=== PATIENT | female | born 1975 | race Two or more races ===

== ENCOUNTER 2017-12-02 23:17 | Emergency (ER) | payer MEDICAID ==
[~2017-12-02] VITALS: Ht 160 cm; Wt 122.5 kg
[2017-12-03 03:37] LABS: Basophils # (auto) 0.1 uL; Basophils % (auto) 0.7 % (0.0-2.0); Eosinophils # (auto) 0.3 uL; Eosinophils % (auto) 2.7 % (0.0-7.0); Hematocrit 43.2 % (36.0-46.0); Hemoglobin 14.5 g/dL (12.2-16.2); Lymphocytes # (auto) 1.7 uL; Lymphocytes % (auto) 13.9 % (10.0-50.0); Mean Corpuscular Hemoglobin 28.7 pg (28.0-32.0); Mean Corpuscular Hgb Conc. 33.7 g/dL (32.0-36.0); Mean Corpuscular Volume 85.1 fL (80.0-100.0); Monocytes # (auto) 0.8 uL; Neutrophils # (auto) 9.1 uL; Neutrophils % (auto) 75.7 % (37.0-80.0); Nucleated Red Blood Cells % 0.1 %; Platelet Count (auto) 391 10^3/uL (140-450); Red Blood Cells 5.07 10^6/uL (4.0-5.20); Red Cell Distribution Width 15.7 % (11.8-14.3)
[2017-12-03 03:41] LABS: Urine Bacteria NONE SEEN /hpf (None Seen); Urine Blood 1+ /uL (Negative); Urine Mucus FEW (None Seen); Urine WBC 2 /hpf (0 - 5)
[2017-12-03 03:53] LABS: Albumin 3.7 g/dL (3.4-5.0); BUN/Creatinine Ratio 22.2; Calcium 8.2 mg/dL (8.5-10.1); Magnesium 2.4 mg/dL (1.6-2.6); Potassium 3.9 mmol/L (3.5-5.1)
[2017-12-03 03:56] LABS: Bilirubin, Total 0.3 mg/dL (0.2-1.0); Total Protein 8.1 g/dL (6.4-8.2)
[2017-12-03] MEDS ORDERED: SODIUM CHLORIDE 0.9% 1,000 ML IVB ONE (07:52)
[2017-12-03] MEDS ORDERED: KETOROLAC TROMETH 30 MG/ML 1ML VIAL IV ONE (08:00)
[2017-12-03] MEDS ORDERED: PROMETHAZINE HCL 25 MG/ML 1ML IV PRN (08:00)
[2017-12-03] MEDS ORDERED: IOHEXOL 300 MG/ML 100ML BOTTLE IJ ONE (08:07)
[2017-12-03 12:33] VITALS: BP 124/94
== END 2017-12-03 12:34 | disposition home or self-care (01) ==
LOC: ER 23:17
DX: R10.84 Generalized abdominal pain (principal); E66.9 Obesity, unspecified; E03.9 Hypothyroidism, unspecified; Z68.42 Body mass index [BMI] 45.0-49.9, adult
CPT/HCPCS: 36415; 74177; 80053; 81001; 83036; 83690; 83735; 84443; 84702; 85025; 96361; 96374; 99285; J1885; J7030; Q9967

== ENCOUNTER 2020-05-27 21:36 | Inpatient (IN) | payer MEDICAID ==
[~2020-05-27] VITALS: Ht 160 cm; Wt 131.2 kg
[2020-05-27] MEDS ORDERED: ACETAMINOPHEN 325 MG TAB PO ONE (22:00)
[2020-05-27] MEDS ORDERED: DexAMETHasone SOD PHOS 10MG/1ML VIAL INJ IV ONE (22:00)
[2020-05-27] MEDS ORDERED: SODIUM CHLORIDE 0.9% 1,000 ML IV ONE (22:00)
[2020-05-27] MEDS ORDERED: DOXYCYCLINE 100MG/250ML 250 ML IV ONE (22:00)
[2020-05-27 22:17] LABS: Basophils # (auto) 0 10 ^3/uL (0-0.2); Basophils % (auto) 0.4 % (0.0-2.0); Eosinophils # (auto) 0 10 ^3/uL (0-0.8); Eosinophils % (auto) 0.3 % (0.0-7.0); Hematocrit 47.7 % (36.0-46.0); Hemoglobin 15.9 g/dL (12.2-16.2); Lymphocytes # (auto) 1.1 10 ^3/uL (0.4-5.4); Lymphocytes % (auto) 18.2 % (10.0-50.0); Mean Corpuscular Hemoglobin 28.6 pg (28.0-32.0); Mean Corpuscular Hgb Conc. 33.3 g/dL (32.0-36.0); Mean Corpuscular Volume 86.1 fL (80.0-100.0); Monocytes # (auto) 0.6 10 ^3/uL (0-1.3); Monocytes % (auto) 10.5 % (0.0-12.0); Neutrophils # (auto) 4.2 10 ^3/uL (1.6-8.6); Neutrophils % (auto) 70.6 % (37.0-80.0); Platelet Count (auto) 278 10^3/uL (140-450); Red Blood Cells 5.54 10^6/uL (4.0-5.20); Red Cell Distribution Width 14.2 % (11.8-14.3)
[2020-05-27 22:33] LABS: INR 0.95 (0.9-1.15)
[2020-05-27 22:34] LABS: Albumin 3.4 g/dL (3.4-5.0); BUN/Creatinine Ratio 7.8; Calcium 7.9 mg/dL (8.5-10.1); Potassium 3.6 mmol/L (3.5-5.1)
[2020-05-27 22:38] LABS: Bilirubin, Total 0.3 mg/dL (0.2-1.0); Total Protein 8.3 g/dL (6.4-8.2)
[2020-05-28] MEDS ORDERED: MORPHINE SULF INJ 2 MG/ML SYRINGE 1ML IV PRN (00:45)
[2020-05-28] MEDS ORDERED: NITROGLYCERIN 0.4 MG SL TAB SL PRN (00:45)
[2020-05-28 01:20] LABS: Magnesium 2.4 mg/dL (1.6-2.6)
[2020-05-28 01:30] LABS: Urine Bacteria MOD /hpf (None Seen); Urine Blood Negative /uL (Negative); Urine Mucus FEW (None Seen); Urine Specific Gravity 1.012 (1.001-1.035); Urine WBC 1 /hpf (0 - 5)
[2020-05-28 02:34] VITALS: BP 139/85
--- NOTE | 2020-05-28 02:35 | NUR ---
Telemetry admit from ER JASPERLIZBETH Rice admitted to Telemetry unit after SBAR received. Patient oriented to PRAVEEN DELEON, RN primary RN, unit, room, bed, and unit policies regarding patient care and visiting hours. Patient now on continuous telemetry monitoring, tele box # 3 and telemetry reading on arrival to unit is SR-90's. Patient placed on bedside oxygen 2L NC, weighed by bedscale and encouraged to call if they need something. All questions and concerns addressed, patient verbalized understanding.
[2020-05-28] MEDS ORDERED: PNEUMOCOCCAL VACC POLYS 25 MCG/0.5 ML VIAL IM ONE (03:45)
[2020-05-28] MEDS ORDERED: LEVO50TA7 PO (03:48)
--- NOTE | 2020-05-28 03:50 | NUR ---
Lab Called Lab called patient positive to Covid-19.
--- NOTE | 2020-05-28 04:15 | NUR ---
Room Change Patient got moved to room 245B
[2020-05-28] MEDS: LEVOTHYROXINE SODIUM 50 MCG TAB PO SCH (06:29)
--- NOTE | 2020-05-28 07:30 | NUR ---
Opening Shift Note Assumed care of patient, awake and confused. No S/S of distress/SOB or pain. Patient on 2L NC. Patient safety measures in place bed in lowest position, side rails up x2, call light within reach. Instructed on POC and to call for assist PRN, will continue to monitor for changes Q1hr and PRN.
[2020-05-28 09:00] VITALS: BP 119/61
[2020-05-28] MEDS: DexAMETHasone SOD PHOS 10MG/1ML VIAL INJ IV SCH (09:13)
[2020-05-28] MEDS: FAMOTIDINE 20 MG TAB PO SCH ×2 (09:14→21:14)
[2020-05-28] MEDS: ASCORBIC ACID 1,000 MG TAB PO SCH (09:14)
[2020-05-28] MEDS: ZINC SULFATE 220mg CAP or TAB PO SCH (09:14)
[2020-05-28] MEDS: CHOLECALCIFEROL (VITD3) 2,000 UNIT CAP PO SCH (09:15)
--- NOTE | 2020-05-28 09:43 | NUR ---
CALL PLACED TO PHARMACY RE: AZITHROMYCIN IV PER PHARMACIST MEDICATION IS BACK-ORDERED. RN TO NOTIFY
[2020-05-28] MEDS ORDERED: ENOXAPARIN SOD 40 MG/0.4 ML SYRINGE SC SCH (10:00)
[2020-05-28] MEDS ORDERED: DOXYCYCLINE 100MG/250ML 250 ML IV SCH (10:00)
[2020-05-28 12:46] VITALS: BP 137/83
--- NOTE | 2020-05-28 13:20 | NUR ---
ROUNDING MD Vinod SOLOMON AT BEDSIDE. ALL QUESTIONS AND CONCERNS ADDRESSED AT THIS TIME.
[2020-05-28] MEDS ORDERED: POTASSIUM CHL 10 Meq TABLET PO ONE (14:00)
[2020-05-28] MEDS ORDERED: FUROSEMIDE 40 MG TAB PO ONE (14:00)
--- NOTE | 2020-05-28 19:55 | NUR ---
Opening Shift Note Assumed care of patient, awake and alert. No S/S of distress/SOB or pain. Patient on 2L NC. Instructed on POC and to call for assist PRN, will continue to monitor for changes Q1hr and PRN.
[2020-05-28 20:00] VITALS: BP 130/82
[2020-05-28] MEDS: DOXYCYCLINE 100 MG TAB/CAP PO SCH (21:14)
[2020-05-28] MEDS: TEMAZEPAM 15 MG CAP PO PRN (21:14)
[2020-05-28] MEDS: ENOXAPARIN SOD 40 MG/0.4 ML SYRINGE SC SCH (21:15)
[2020-05-28 22:00] VITALS: BP 130/82
[2020-05-29 05:00] VITALS: BP 156/90
[2020-05-29] MEDS: LEVOTHYROXINE SODIUM 50 MCG TAB PO SCH (06:06)
[2020-05-29] MEDS: ACETAMINOPHEN 325 MG TAB PO PRN (06:10)
[2020-05-29 07:25] LABS: Basophils # (auto) 0.1 10 ^3/uL (0-0.2); Basophils % (auto) 0.5 % (0.0-2.0); Eosinophils # (auto) 0 10 ^3/uL (0-0.8); Hematocrit 46.7 % (36.0-46.0); Hemoglobin 15.1 g/dL (12.2-16.2); Lymphocytes # (auto) 1.3 10 ^3/uL (0.4-5.4); Lymphocytes % (auto) 9.3 % (10.0-50.0); Mean Corpuscular Hemoglobin 28.3 pg (28.0-32.0); Mean Corpuscular Hgb Conc. 32.4 g/dL (32.0-36.0); Mean Corpuscular Volume 87.1 fL (80.0-100.0); Monocytes # (auto) 0.8 10 ^3/uL (0-1.3); Monocytes % (auto) 5.7 % (0.0-12.0); Neutrophils # (auto) 12.2 10 ^3/uL (1.6-8.6); Neutrophils % (auto) 84.5 % (37.0-80.0); Nucleated Red Blood Cells % 0.2 %; Platelet Count (auto) 310 10^3/uL (140-450); Red Blood Cells 5.35 10^6/uL (4.0-5.20); Red Cell Distribution Width 14.5 % (11.8-14.3); White Blood Cell 14.4 10^3/uL (4.4-10.8)
--- NOTE | 2020-05-29 07:30 | NUR ---
Opening Shift Note Assumed care of patient, awake and alert. No S/S of distress/SOB or pain. Patient on 2L NC. Instructed on POC and to call for assist PRN, will continue to monitor for changes Q1hr and PRN. Addendum: 05/29/20 at 0823 by YESSI NAPOLES RN RN PATIENT COMPLAINING OF 9/10 PAIN DUE TO MIGRAINE HEADACHE. WILL MEDICATE PER DEC AND ALERT
[2020-05-29 07:59] LABS: Calcium 8.3 mg/dL (8.5-10.1); Potassium 3.8 mmol/L (3.5-5.1)
[2020-05-29 08:05] LABS: Albumin 3.3 g/dL (3.4-5.0); BUN/Creatinine Ratio 11.4; Bilirubin, Total 0.2 mg/dL (0.2-1.0); Total Protein 8.3 g/dL (6.4-8.2)
--- NOTE | 2020-05-29 08:18 | NUR ---
PAGED ON-CALL HOSPITALIST Isabella WHALEN RE: PATIENT COMPLAINING OF MIGRAINE WITH PAIN 06/26. PT ALREADY RECEIVED TYLENOL, PER PATIENT "IT DID NOTHING FOR THE PAIN, I NORMALLY TAKE EXCEDRIN AND IT HELPS" AWAITING CALL BACK
[2020-05-29 09:00] VITALS: BP 146/100
--- NOTE | 2020-05-29 09:12 | NUR ---
PAGED MD Vinod SOLOMON RE: PATIENT COMPLAINING OF MIGRAINE WITH PAIN 06/26. PT ALREADY RECEIVED TYLENOL, PER PATIENT "IT DID NOTHING FOR THE PAIN, I NORMALLY TAKE EXCEDRIN AND IT HELPS" AWAITING CALL BACK
[2020-05-29] MEDS: DexAMETHasone SOD PHOS 10MG/1ML VIAL INJ IV SCH (10:02)
[2020-05-29] MEDS: POTASSIUM CHL 10 Meq TABLET PO SCH (10:02)
[2020-05-29] MEDS: DOXYCYCLINE 100 MG TAB/CAP PO SCH ×2 (10:03→21:53)
[2020-05-29] MEDS: PANTOPRAZOLE 40 MG TAB PO SCH (10:03)
[2020-05-29] MEDS: FAMOTIDINE 20 MG TAB PO SCH ×2 (10:03→21:52)
[2020-05-29] MEDS: ZINC SULFATE 220mg CAP or TAB PO SCH (10:03)
[2020-05-29] MEDS: ASCORBIC ACID 1,000 MG TAB PO SCH (10:03)
[2020-05-29] MEDS: ENOXAPARIN SOD 40 MG/0.4 ML SYRINGE SC SCH ×2 (10:04→21:53)
[2020-05-29] MEDS: CHOLECALCIFEROL (VITD3) 2,000 UNIT CAP PO SCH (10:04)
[2020-05-29] MEDS: FUROSEMIDE 40 MG TAB PO SCH (10:04)
[2020-05-29] MEDS: IBUPROFEN 600 MG TAB PO PRN ×2 (10:04→21:12)
[2020-05-29 12:00] VITALS: BP 137/81
[2020-05-29] MEDS: ONDANSETRON HCL 4 MG/2 ML VIAL IV PRN ×2 (12:20→20:47)
[2020-05-29] MEDS ORDERED: EXCEDRIN PO PRN (12:30)
[2020-05-29 17:00] VITALS: BP 123/77
[2020-05-29 22:00] VITALS: BP 130/88
[2020-05-29] MEDS: TEMAZEPAM 15 MG CAP PO PRN (22:00)
[2020-05-30] MEDS: EXCEDRIN PO PRN ×3 (04:24→15:34)
[2020-05-30] MEDS: ACETAMINOPHEN 325 MG TAB PO PRN (04:24)
--- NOTE | 2020-05-30 04:25 | NUR ---
PATIENT COMPLAINING OF MIGRAINE AND FEELING HOT. UPON TAKING TEMPERATURE SHE WAS FOUND TO HAVE A FEVER OF 103. BLANKETS WERE REMOVED, ICE PACK GIVEN AND TYLENOL GIVEN TO REDUCE TEMPERATURE. WILL CONTINUE TO MONITOR.
[2020-05-30 05:00] VITALS: BP 135/95
[2020-05-30] MEDS: LEVOTHYROXINE SODIUM 50 MCG TAB PO SCH (06:41)
[2020-05-30 07:31] LABS: Basophils # (auto) 0 10 ^3/uL (0-0.2); Basophils % (auto) 0.2 % (0.0-2.0); Eosinophils # (auto) 0 10 ^3/uL (0-0.8); Hematocrit 42.4 % (36.0-46.0); Hemoglobin 14.3 g/dL (12.2-16.2); Lymphocytes # (auto) 1.1 10 ^3/uL (0.4-5.4); Lymphocytes % (auto) 7.3 % (10.0-50.0); Mean Corpuscular Hemoglobin 29.2 pg (28.0-32.0); Mean Corpuscular Hgb Conc. 33.7 g/dL (32.0-36.0); Mean Corpuscular Volume 86.5 fL (80.0-100.0); Monocytes # (auto) 0.8 10 ^3/uL (0-1.3); Monocytes % (auto) 5.1 % (0.0-12.0); Neutrophils # (auto) 13.1 10 ^3/uL (1.6-8.6); Neutrophils % (auto) 87.4 % (37.0-80.0); Platelet Count (auto) 321 10^3/uL (140-450); Red Cell Distribution Width 14.5 % (11.8-14.3)
[2020-05-30 07:55] LABS: Potassium 3.2 mmol/L (3.5-5.1)
[2020-05-30 08:00] LABS: BUN/Creatinine Ratio 15.9; Calcium 8.3 mg/dL (8.5-10.1)
[2020-05-30 08:04] LABS: Bilirubin, Total 0.3 mg/dL (0.2-1.0); Total Protein 7.7 g/dL (6.4-8.2)
[2020-05-30 09:21] VITALS: BP 145/78
[2020-05-30] MEDS: ASCORBIC ACID 1,000 MG TAB PO SCH (09:34)
[2020-05-30] MEDS: DOXYCYCLINE 100 MG TAB/CAP PO SCH ×2 (09:34→22:30)
[2020-05-30] MEDS: ENOXAPARIN SOD 40 MG/0.4 ML SYRINGE SC SCH ×2 (09:34→22:30)
[2020-05-30] MEDS: CHOLECALCIFEROL (VITD3) 2,000 UNIT CAP PO SCH (09:34)
[2020-05-30] MEDS: FAMOTIDINE 20 MG TAB PO SCH ×2 (09:34→22:30)
[2020-05-30] MEDS: PANTOPRAZOLE 40 MG TAB PO SCH (09:35)
[2020-05-30] MEDS: POTASSIUM CHL 10 Meq TABLET PO SCH (09:35)
[2020-05-30] MEDS: DexAMETHasone SOD PHOS 10MG/1ML VIAL INJ IV SCH (09:35)
[2020-05-30] MEDS: ZINC SULFATE 220mg CAP or TAB PO SCH (09:35)
[2020-05-30] MEDS: FUROSEMIDE 40 MG TAB PO SCH (09:36)
[2020-05-30 10:51] LABS: CRP High Sensitivity 5.27 mg/dL (< 0.3)
[2020-05-30] MEDS: ONDANSETRON HCL 4 MG/2 ML VIAL IV PRN ×2 (11:29→18:54)
[2020-05-30 13:22] VITALS: BP 131/80
--- NOTE | 2020-05-30 15:33 | NUR ---
Nutrition Assessment Notes Please refer to link for full assessment notes. Est Energy needs: [id number] kcals (12-15 kcal/kgBW) Est Protein needs: 105-131 gms/day (2.0-2.5 gm/kgIBW) d/t pt adiposity Will continue to monitor and reassess prn. Addendum: 05/30/20 at [address] Amended: Links added.
[2020-05-30] MEDS ORDERED: REMDESIVIR 200 MG in NS 210ml LOADING DOSE ADULT IV ONE (17:00)
[2020-05-30 17:16] VITALS: BP 112/74
--- NOTE | 2020-05-30 18:12 | NUR ---
REMDESIVIR ASSESSMENT PRE-INFUSION VITAL SIGNS: TEMP:98.0 BP112/74 HR105 RR20 SPO2 93% INFUSION VITAL SIGNS: TEMP:98.1 BP104/80 HR91 RR18 SPO2 92% POST-INFUSIONVITAL SIGNS; TEMP:97.8 BP122/64 HR96 RR19 SPO2 94%
--- NOTE | 2020-05-30 21:30 | NUR ---
Convalescent Plasma ordered through system per protocol
[2020-05-30 22:27] VITALS: BP 128/81
[2020-05-31] VITALS (7 sets, daily range): BP systolic 107–142; BP diastolic 63–90
[2020-05-31] MEDS: EXCEDRIN PO PRN ×2 (00:03→12:05)
[2020-05-31 06:17] LABS: Albumin 2.8 g/dL (3.4-5.0); Calcium 7.9 mg/dL (8.5-10.1)
[2020-05-31 06:20] LABS: Bilirubin, Total 0.4 mg/dL (0.2-1.0); Total Protein 7.9 g/dL (6.4-8.2)
[2020-05-31] MEDS ORDERED: POTASSIUM CHL 20 Meq TABLET PO ONE (06:45)
[2020-05-31] MEDS: LEVOTHYROXINE SODIUM 50 MCG TAB PO SCH (06:57)
[2020-05-31] MEDS: ZINC SULFATE 220mg CAP or TAB PO SCH (08:57)
[2020-05-31] MEDS: POTASSIUM CHL 10 Meq TABLET PO SCH (08:57)
[2020-05-31] MEDS: DexAMETHasone SOD PHOS 10MG/1ML VIAL INJ IV SCH (08:57)
[2020-05-31] MEDS: DOXYCYCLINE 100 MG TAB/CAP PO SCH ×2 (08:58→22:18)
[2020-05-31] MEDS: FAMOTIDINE 20 MG TAB PO SCH (08:58)
[2020-05-31] MEDS: PANTOPRAZOLE 40 MG TAB PO SCH (08:58)
[2020-05-31] MEDS: FUROSEMIDE 40 MG TAB PO SCH (08:58)
[2020-05-31] MEDS: CHOLECALCIFEROL (VITD3) 2,000 UNIT CAP PO SCH (08:59)
[2020-05-31] MEDS: ONDANSETRON HCL 4 MG/2 ML VIAL IV PRN ×2 (08:59→13:00)
[2020-05-31] MEDS: ASCORBIC ACID 1,000 MG TAB PO SCH (08:59)
[2020-05-31] MEDS: ENOXAPARIN SOD 40 MG/0.4 ML SYRINGE SC SCH (08:59)
[2020-05-31] MEDS ORDERED: PANTOPRAZOLE 40 MG/10 ML VIAL INJ IV ONE (15:15)
[2020-05-31] MEDS: REMDESIVIR 100mg in NS 230ml DAILYx4DAYS (NO VENT) IV SCH (18:07)
--- NOTE | 2020-05-31 19:15 | NUR ---
Opening Shift Note Received report from michael Noriega RN. Assumed care of patient, awake and alert. No S/S of distress/SOB or pain. Saturating at 90%on 4LNC. Patient on the phone talking. Instructed on POC and to call for assist PRN, will continue to monitor for changes Q1hr and PRN. Bed placed in lowest position and call light within reach.
[2020-06-01] VITALS (7 sets, daily range): BP systolic 105–136; BP diastolic 60–90
--- NOTE | 2020-06-01 03:15 | NUR ---
ROUNDS Patient has been having non-productive cough. Given Robitussin as ordered. Will monitor.
[2020-06-01] MEDS: guaiFENesin-DM 100/10mg/5ml SYR PO PRN ×2 (03:16→21:42)
--- NOTE | 2020-06-01 04:32 | NUR ---
Patient is on 4LNC with humidifier saturating at 89% to 91%. Patient refused to have oxygen increased to 6LNC, states that it dries her nose. Will monitor.
[2020-06-01 06:17] LABS: Basophils # (auto) 0 10 ^3/uL (0-0.2); Basophils % (auto) 0.1 % (0.0-2.0); Eosinophils # (auto) 0 10 ^3/uL (0-0.8); Eosinophils % (auto) 0.1 % (0.0-7.0); Hematocrit 45.4 % (36.0-46.0); Hemoglobin 15.1 g/dL (12.2-16.2); Lymphocytes # (auto) 1.4 10 ^3/uL (0.4-5.4); Lymphocytes % (auto) 13.1 % (10.0-50.0); Mean Corpuscular Hemoglobin 28.7 pg (28.0-32.0); Mean Corpuscular Hgb Conc. 33.3 g/dL (32.0-36.0); Mean Corpuscular Volume 86.2 fL (80.0-100.0); Monocytes # (auto) 0.9 10 ^3/uL (0-1.3); Monocytes % (auto) 8.2 % (0.0-12.0); Neutrophils # (auto) 8.3 10 ^3/uL (1.6-8.6); Neutrophils % (auto) 78.5 % (37.0-80.0); Nucleated Red Blood Cells % 0.2 %; Platelet Count (auto) 415 10^3/uL (140-450); Red Blood Cells 5.27 10^6/uL (4.0-5.20); Red Cell Distribution Width 14.3 % (11.8-14.3); White Blood Cell 10.6 10^3/uL (4.4-10.8)
[2020-06-01] MEDS: LEVOTHYROXINE SODIUM 50 MCG TAB PO SCH (06:33)
[2020-06-01 06:46] LABS: Albumin 2.8 g/dL (3.4-5.0); Calcium 8.3 mg/dL (8.5-10.1); Potassium 3.4 mmol/L (3.5-5.1)
[2020-06-01 06:48] LABS: BUN/Creatinine Ratio 19.8; Bilirubin, Total 0.3 mg/dL (0.2-1.0); Total Protein 7.8 g/dL (6.4-8.2)
--- NOTE | 2020-06-01 07:00 | NUR ---
RESPIRATORY NOTE POX CHECK DONE BY RT. HR 64, RR 16, SPO2 92% ON 5 L NC, BS CLEAR AND DIMINISHED. NO SIGNS OR SYMPTOMS OF RESPIRATORY DISTRESS NOTED AT THIS TIME.
[2020-06-01] MEDS: ASCORBIC ACID 1,000 MG TAB PO SCH (09:15)
[2020-06-01] MEDS: DexAMETHasone SOD PHOS 10MG/1ML VIAL INJ IV SCH (09:15)
[2020-06-01] MEDS: PANTOPRAZOLE 40 MG/10 ML VIAL INJ IV SCH (09:15)
[2020-06-01] MEDS: POTASSIUM CHL 10 Meq TABLET PO SCH (09:15)
[2020-06-01] MEDS: ZINC SULFATE 220mg CAP or TAB PO SCH (09:15)
[2020-06-01] MEDS: DOXYCYCLINE 100 MG TAB/CAP PO SCH ×2 (09:15→21:42)
[2020-06-01] MEDS: ENOXAPARIN SOD 40 MG/0.4 ML SYRINGE SC SCH (09:16)
[2020-06-01] MEDS: FUROSEMIDE 40 MG TAB PO SCH (09:16)
[2020-06-01] MEDS: CHOLECALCIFEROL (VITD3) 2,000 UNIT CAP PO SCH (09:16)
[2020-06-01] MEDS ORDERED: POTASSIUM CHL 10 Meq TABLET PO ONE (14:45)
[2020-06-01] MEDS: REMDESIVIR 100mg in NS 230ml DAILYx4DAYS (NO VENT) IV SCH (17:28)
--- NOTE | 2020-06-01 19:10 | NUR ---
Opening Shift Note Received report from michael Noriega RN. Assumed care of patient, awake and alert. No S/S of distress/SOB or pain. Patient is on 4LNC saturating at 90%. Patient on the phone talking. Encouraged patient to do prone position tonight when sleeping. Will monitor on that. Instructed on POC and to call for assist PRN, will continue to monitor for changes Q1hr and PRN.
--- NOTE | 2020-06-01 23:00 | NUR ---
RT states that patient's oxygen saturation at 4LNC is 86% and rt placed patient on 8L simple mask. Will monitor
[2020-06-02] VITALS (12 sets, daily range): BP systolic 105–139; BP diastolic 68–97
--- NOTE | 2020-06-02 00:15 | NUR ---
Patient woke up and states that she is not comfortable with the mask and ask to be put back on Nasal cannula with humidifier. Patient now on 6LNC saturating at 94%. Will monitor.
[2020-06-02] MEDS: LEVOTHYROXINE SODIUM 50 MCG TAB PO SCH (06:41)
--- NOTE | 2020-06-02 06:52 | NUR ---
ROUNDS Patient is resting in bed alert and awake, no distress noted. Patient is on 5LNC saturating at 90%. Patient denies pain this time.
[2020-06-02 08:21] LABS: Basophils # (auto) 0 10 ^3/uL (0-0.2); Eosinophils # (auto) 0 10 ^3/uL (0-0.8); Lymphocytes # (auto) 1.9 10 ^3/uL (0.4-5.4)
[2020-06-02 08:23] LABS: Basophils % (auto) 0.3 % (0.0-2.0); Eosinophils % (auto) 0.4 % (0.0-7.0); Hematocrit 45.8 % (36.0-46.0); Hemoglobin 15.6 g/dL (12.2-16.2); Lymphocytes % (auto) 20.1 % (10.0-50.0); Mean Corpuscular Hemoglobin 29.5 pg (28.0-32.0); Mean Corpuscular Hgb Conc. 34.2 g/dL (32.0-36.0); Mean Corpuscular Volume 86.5 fL (80.0-100.0); Monocytes % (auto) 10.8 % (0.0-12.0); Neutrophils # (auto) 6.6 10 ^3/uL (1.6-8.6); Neutrophils % (auto) 68.4 % (37.0-80.0); Nucleated Red Blood Cells % 0.2 %; Platelet Count (auto) 531 10^3/uL (140-450); Red Blood Cells 5.29 10^6/uL (4.0-5.20); Red Cell Distribution Width 14.4 % (11.8-14.3); White Blood Cell 9.6 10^3/uL (4.4-10.8)
[2020-06-02 08:31] LABS: Albumin 2.9 g/dL (3.4-5.0); BUN/Creatinine Ratio 24.2; Calcium 8.9 mg/dL (8.5-10.1); Potassium 3.4 mmol/L (3.5-5.1)
[2020-06-02 08:33] LABS: Bilirubin, Total 0.3 mg/dL (0.2-1.0); Total Protein 8.1 g/dL (6.4-8.2)
[2020-06-02] MEDS: PANTOPRAZOLE 40 MG/10 ML VIAL INJ IV SCH (08:57)
[2020-06-02] MEDS: ZINC SULFATE 220mg CAP or TAB PO SCH (08:57)
[2020-06-02] MEDS: DexAMETHasone SOD PHOS 10MG/1ML VIAL INJ IV SCH (08:57)
[2020-06-02] MEDS: ASCORBIC ACID 1,000 MG TAB PO SCH (08:58)
[2020-06-02] MEDS: CHOLECALCIFEROL (VITD3) 2,000 UNIT CAP PO SCH (08:58)
[2020-06-02] MEDS: DOXYCYCLINE 100 MG TAB/CAP PO SCH (08:58)
[2020-06-02] MEDS: ENOXAPARIN SOD 40 MG/0.4 ML SYRINGE SC SCH (08:58)
[2020-06-02] MEDS: POTASSIUM CHL 10 Meq TABLET PO SCH ×2 (08:58→10:46)
[2020-06-02] MEDS: FUROSEMIDE 40 MG TAB PO SCH (08:59)
--- NOTE | 2020-06-02 12:49 | NUR ---
Nutrition Followup Notes Wt: 130.5 kg Unable to speak to pt d/t pt is positive for COVID. Pt is with a Regular diet, with inadequate PO of < 50% x 4 per RN doc. pt with no distress noted per nursing Est Energy needs: 7387-0656 kcals (12-15 kcal/kgBW), Est Protein needs: 105-131 gms/day (2.0-2.5 gm/kgIBW) d/t pt adiposity LABS: BUN 23 H ALB 2.9 L GI: Pt had 2 BM yesterday per RN doc BS: 22 low risk. Refer to wound assessment report for full details. PES: Obesity aeb 264% IBW and BMI of 54.0 kg/m2 and Hx of Thyroid Dz r/t energy intake in excess of energy needs and chronic medical condition Comments: will continue to monitor skin status, PO intake. F/u mod 3-5 days 1) Continue to monitor po intake, labs, skin 2) refer pt to [facility] on dc 3) continue current plan of care.
[2020-06-02] MEDS: REMDESIVIR 100mg in NS 230ml DAILYx4DAYS (NO VENT) IV SCH (18:00)
--- NOTE | 2020-06-02 19:10 | NUR ---
Opening Shift Note Assumed care of patient. Patient is awake, alert, and oriented X 4. No S/S of respiratory distress/SOB or pain reported. Patient on 6 LPM NC with O2 saturation 92%. Bed in lowest position, brakes locked, side rails up x 2, call light within reach. POC discussed and patient instructed to call for assistance as needed. All questions answered. Will continue to monitor for changes Q1hr and PRN.
[2020-06-02] MEDS: guaiFENesin-DM 100/10mg/5ml SYR PO PRN (23:41)
[2020-06-03 05:29] VITALS: BP 101/65
[2020-06-03] MEDS: LEVOTHYROXINE SODIUM 50 MCG TAB PO SCH (06:40)
[2020-06-03 09:14] VITALS: BP 111/67
[2020-06-03] MEDS: ZINC SULFATE 220mg CAP or TAB PO SCH (10:04)
[2020-06-03] MEDS: DexAMETHasone SOD PHOS 10MG/1ML VIAL INJ IV SCH (10:04)
[2020-06-03] MEDS: PANTOPRAZOLE 40 MG/10 ML VIAL INJ IV SCH (10:04)
[2020-06-03] MEDS: ASCORBIC ACID 1,000 MG TAB PO SCH (10:05)
[2020-06-03] MEDS: FUROSEMIDE 40 MG TAB PO SCH (10:05)
[2020-06-03] MEDS: CHOLECALCIFEROL (VITD3) 2,000 UNIT CAP PO SCH (10:05)
[2020-06-03] MEDS: POTASSIUM CHL 10 Meq TABLET PO SCH ×2 (10:05→21:52)
[2020-06-03] MEDS: ENOXAPARIN SOD 40 MG/0.4 ML SYRINGE SC SCH (10:06)
[2020-06-03 13:11] VITALS: BP 117/66
--- NOTE | 2020-06-03 15:00 | NUR ---
INFLUENZA A/B SWAB COLLECTED AND SENT TO LAB PER ORDER.
[2020-06-03 17:00] VITALS: BP 110/70
[2020-06-03] MEDS: REMDESIVIR 100mg in NS 230ml DAILYx4DAYS (NO VENT) IV SCH (17:04)
[2020-06-03] MEDS: FUROSEMIDE 40 MG/4 ML VIAL IV SCH (18:40)
--- NOTE | 2020-06-03 18:40 | NUR ---
REMDESIVIR ASSESSMENT PRE-INFUSION VITAL SIGNS: TEMP:BP111/74 HR69 RR20 POST-INFUSION VITAL SIGNS; TEMP:BP110 HR73 RR19
--- NOTE | 2020-06-03 19:17 | NUR ---
Opening Shift Note Assumed care of patient. Patient is awake, alert, and oriented X 4. No S/S of respiratory distress/SOB or pain reported. Patient on 5 L NC with O2 saturation 94%. Bed in lowest position, brakes locked, side rails up x 2, call light within reach. POC discussed. All questions answered. Patient verbalized understanding. Patient instructed to call for assistance as needed. Will continue to monitor for changes Q1hr and PRN.
[2020-06-03 20:00] VITALS: BP 110/70
[2020-06-03 22:00] VITALS: BP 111/74
--- NOTE | 2020-06-03 22:50 | NUR ---
Respiratory note: PT ASSESSED AT THIS TIME, NO RESPIRATORY DISTRESS NOTED. HR 74 RR 18 SP02 92% ON 4L NASAL CANNULA.
[2020-06-04 05:00] VITALS: BP 130/83
[2020-06-04] MEDS: FUROSEMIDE 40 MG/4 ML VIAL IV SCH (06:20)
[2020-06-04] MEDS: LEVOTHYROXINE SODIUM 50 MCG TAB PO SCH (06:33)
--- NOTE | 2020-06-04 07:01 | NUR ---
Respiratory note: POX CHECK, NO RESPIRATORY DISTRESS NOTED. HR 65 RR 18 SP02 92% ON 4L NASAL CANNULA.
[2020-06-04 08:00] VITALS: BP 125/88
[2020-06-04 09:00] VITALS: BP 125/88
[2020-06-04] MEDS ORDERED: ASCO10003 PO (09:14)
[2020-06-04] MEDS ORDERED: PANT40TA2 PO (09:14)
[2020-06-04] MEDS ORDERED: ALBUAER3 IN (09:14)
[2020-06-04] MEDS ORDERED: ZINC220T6 PO (09:14)
[2020-06-04] MEDS ORDERED: FURO40TA4 PO (09:14)
[2020-06-04] MEDS ORDERED: POTA1TAB61 PO (09:14)
[2020-06-04] MEDS ORDERED: CHOL1CAP47 PO (09:14)
[2020-06-04] MEDS ORDERED: METH4PAK PO (09:14)
[2020-06-04] MEDS: ZINC SULFATE 220mg CAP or TAB PO SCH (09:37)
[2020-06-04] MEDS: PANTOPRAZOLE 40 MG/10 ML VIAL INJ IV SCH (09:37)
[2020-06-04] MEDS: ENOXAPARIN SOD 40 MG/0.4 ML SYRINGE SC SCH ×2 (09:38→10:00)
[2020-06-04] MEDS: ASCORBIC ACID 1,000 MG TAB PO SCH (09:38)
[2020-06-04] MEDS: POTASSIUM CHL 10 Meq TABLET PO SCH (09:38)
[2020-06-04] MEDS: CHOLECALCIFEROL (VITD3) 2,000 UNIT CAP PO SCH (09:40)
[2020-06-04] MEDS ORDERED: DexAMETHasone 4 MG TAB PO SCH (10:00)
--- NOTE | 2020-06-04 10:22 | NUR ---
1020 06/04/20 - Faxed to [facility] at [phone] face sheet, order for home oxygen, discharge summary, H/P, order also sent to [facility], requesting authorization for DME. Pending review, auth approval and time of delivery to bedside.
[2020-06-04 12:37] VITALS: BP 125/88
[2020-06-04 13:00] VITALS: BP 116/76
--- NOTE | 2020-06-04 14:40 | NUR ---
Discharge instructions given as ordered. Encourage to follow up with PMD as instructed. Appointment not made due to Dr's office not answering phone after 3 attempts. Phone # and address provided to patient and informed to schedule appt to be seen in 1-2 weeks. All questions and concerns addressed. Patient verbalized understanding. Medication reconciliation form completed and copy given to patient. No home medications held in Pharmacy, and no needed vaccines given as patient declined. IV removed with catheter intact and pressure dressing applied. Telemetry unit returned to ICU. Patient taken to vehicle via wheelchair with all personal belongings, and oxygen that was delivered to the hospital for home use. Patient accompanied by staff member. No distress noted at time of departure.
== END 2020-06-04 14:40 | disposition home or self-care (01) | DRG 720 ==
LOC: ER 21:36 → EDBD 21:36 → TELE 21:37 → TELE-EAST 05-28 03:01
PROVIDERS: ADMIT Nurse Practitioner; ATTEND Internal Medicine
PROC: XW033E5 Introduction of Remdesivir Anti-infective into Peripheral Vein, Percutaneous Approach, New Technology Group 5 (ICD-10-PCS; 2020-05-30)
PROC: 30233K1 Transfusion of Nonautologous Frozen Plasma into Peripheral Vein, Percutaneous Approach (ICD-10-PCS; principal; 2020-06-02)
PROC: XW13325 Transfusion of Convalescent Plasma (Nonautologous) into Peripheral Vein, Percutaneous Approach, New Technology Group 5 (ICD-10-PCS; 2020-06-04)
DX: A41.89 Other specified sepsis (principal); U07.1 COVID-19; J12.89 Other viral pneumonia; E66.01 Morbid (severe) obesity due to excess calories; E03.9 Hypothyroidism, unspecified; K29.70 Gastritis, unspecified, without bleeding; Z83.3 Family history of diabetes mellitus; Z82.49 Family history of ischemic heart disease and other diseases of the circulatory system; Z81.8 Family history of other mental and behavioral disorders; Z82.3 Family history of stroke; J96.01 Acute respiratory failure with hypoxia; Z68.43 Body mass index [BMI] 50.0-59.9, adult; Z90.49 Acquired absence of other specified parts of digestive tract
CPT/HCPCS: 36415; 71045; 76705; 80053; 81001; 82728; 83605; 83615; 83735; 83880; 84443; 85025; 85379; 85610; 85730; 86141; 86850; 86900; 86901; 87040; 87804; 93005; 94760; 94762; C9113; G0378; J1100; J2405; J3490